=== PATIENT | male | born 1970 | race Caucasian/White ===

== ENCOUNTER → 2019-04-25 | Outpatient (CLI) | payer BC ==
--- NOTE | 2019-04-25 12:03 | PCVCIMAG ---
APPROVED REPORT Study performed: 04/25/2019 10:03:02 Exam: Stress Echocardiogram Indication: Abnormal EKG, Elevated Ca Score, Hyperlipidemia Patient Location: Echo lab Stress Nurse: Lizzeth Rand RN Room #: 1 Status: routine Ht: 5 ft 8 in HR: 62 bpm BP: 124/88 mmHg Rhythm: NSR Procedure The patient underwent an Exercise Stress Test using the Aidan Protocol. Blood pressure, heart rate, and EKG were monitored. An Echocardiogram was performed by mental health technician in four stages in quad fashion. At peak stress, four selected images were obtained and placed side by side with resting images for comparison. Stress Test Details Stress Test: Exercise stress testing was performed using a Aidan protocol. HR Resting HR: 62 bpmMax Heart Rate (APMHR): 173 bpm Max HR Achieved: 157 bpmTarget HR (85% APMHR): 147 bpm % of APMHR: 90 Recovery HR: 90 bpm HR response to stress: Normal HR response to stress BP Resting BP: 124/88 mmHg Max BP: 142/80 mmHg Recovery BP: 138/82 mmHg BP response to stress: Normal blood pressure response to stress. ECG Resting ECG: Sinus Rhythm Stress ECG: Sinus Rhythm ST Change: Non-ischemic Recovery ECG: Sinus Rhythm Clinical Reason for Termination: Maximal effort Exercise duration: 15 min 00 sec Highest Stage Achieved: Stage 5: 5.0 mph at 18% grade. Exercise capacity: 17.50 METs Overall Exercise Capacity for Age: Good Stress ECG Conclusion ECG: Non-ischemic Clinical: Non-ischemic Pre-Stress Echo The resting Echocardiogram showed normal left ventricular contractility with an estimated Ejection Fraction of about >55%. The resting echocardiogram demonstrated normal wall motion in all wall segments. Normal wall motion in all segments on baseline images. Post-Stress Echo The stress Echocardiogram showed normal left ventricular contractility with an estimated Ejection Fraction of about 60-65%. Compared to rest, there were no stress-induced wall motion abnormalities. Normal augmentation of wall motion in all segments on post stress images. Clinical No clinical or ECG evidence for ischemia. Conclusion Clinical Response: Non-ischemic Exercise Capacity: Superior Stress ECG Response: Non-ischemic Stress Echo Images: Non-ischemic Normal stress echocardiogram with maximal exercise stress. No clinical, EKG or echocardiographic evidence for ischemia. Other Information Study Quality: Adequate <Conclusion> Normal stress echocardiogram with maximal exercise stress. No clinical, EKG or echocardiographic evidence for ischemia.
== END | disposition home or self-care (01) ==
LOC: PCVCIMAG 09:45
PROVIDERS: ATTEND Internal Medicine Cardiovascular Disease
DX: R94.31 Abnormal electrocardiogram [ECG] [EKG] (principal); R93.1 Abnormal findings on diagnostic imaging of heart and coronary circulation; E78.5 Hyperlipidemia, unspecified
CPT/HCPCS: 93325; 93351